=== PATIENT | female | born 1970 | race Two or more races ===

== ENCOUNTER 2021-09-22 17:49 | Emergency (ER) | payer OTHER ==
[~2021-09-22] VITALS: Ht 160 cm; Wt 79.4 kg
[2021-09-22] MEDS ORDERED: BENICAR20 MG PO (18:07)
[2021-09-22] MEDS ORDERED: EUTHYROX150 MCG PO (18:08)
== END 2021-09-22 22:38 | disposition left against medical advice (07) ==
LOC: ER 17:49
DX: R53.81 Other malaise (principal); Z20.822 Contact with and (suspected) exposure to COVID-19; I10 Essential (primary) hypertension; E03.9 Hypothyroidism, unspecified